=== PATIENT | female | born 1985 | race Caucasian/White ===

== ENCOUNTER 2025-06-08 14:07 | Outpatient (CLI) | payer BC, SELFPAY | END 2025-06-08 14:08 | disposition home or self-care (01) | LOC: NFLDREF 06-18 05:47 | PROVIDERS: PCP Nurse Practitioner Family; Referring Provider Nurse Practitioner Family; Visit Provider Nurse Practitioner Family | DX: R53.83 Other fatigue (principal) | CPT/HCPCS: 80053; 82306; 82607; 82728 ==

== ENCOUNTER 2025-07-03 08:21 | Outpatient (CLI) | payer BC, SELFPAY ==
[2025-07-05 00:50] LABS: HPV Source Cervix
[2025-07-13 11:31] LABS: Pap Test Digital Imaging Done; Pap Test Reviewed by Pathologi Done
== END 2025-07-03 08:22 | disposition home or self-care (01) ==
PROVIDERS: PCP Family Medicine; Visit Provider Physician Assistant
DX: Z12.4 Encounter for screening for malignant neoplasm of cervix (principal); Z00.00 Encounter for general adult medical examination without abnormal findings
CPT/HCPCS: 80061; 87624; 87625; 88141; 88142; 88175